=== PATIENT | male | born 1960 ===

== ENCOUNTER → 2023-05-06 17:36 | Outpatient (REF) | payer OTHER, SELFPAY | LOC: RAD 17:36 | PROVIDERS: ATTENDING PHYSICIAN Family Medicine | DX: M25.551 Pain in right hip (principal) | CPT/HCPCS: 72110; 73523 ==

== ENCOUNTER → 2023-06-19 10:14 | Outpatient (REF) | payer OTHER, SELFPAY | LOC: RCS 10:14 | PROVIDERS: ATTENDING PHYSICIAN Family Medicine | DX: Z01.810 Encounter for preprocedural cardiovascular examination (principal) | CPT/HCPCS: 93005 ==

== ENCOUNTER 2023-09-28 11:48 | Outpatient (RCR) | payer OTHER, SELFPAY | END 2023-09-29 23:59 | disposition home or self-care (01) | LOC: RPT 11:48 | PROVIDERS: ATTENDING PHYSICIAN Family Medicine | DX: R29.6 Repeated falls (principal); G20.C Parkinsonism, unspecified; Z73.6 Limitation of activities due to disability; Z96.641 Presence of right artificial hip joint | CPT/HCPCS: 97110; 97112; 97116; 97162; 97530 ==

== ENCOUNTER 2023-10-28 09:37 | Outpatient (RCR) | payer OTHER, SELFPAY | END 2023-10-28 23:59 | disposition home or self-care (01) | LOC: RPT 09:37 | PROVIDERS: ATTENDING PHYSICIAN Otolaryngology; FAMILY PHYSICIAN Family Medicine | DX: Z47.1 Aftercare following joint replacement surgery (principal); Z96.641 Presence of right artificial hip joint; G20.B1 Parkinson's disease with dyskinesia, without mention of fluctuations; Z73.6 Limitation of activities due to disability; R49.0 Dysphonia; R47.1 Dysarthria and anarthria | CPT/HCPCS: 92507; 92524; 97110; 97112; 97116; 97530 ==

== ENCOUNTER 2023-11-23 15:26 | Outpatient (RCR) | payer OTHER, SELFPAY | END 2023-11-23 23:59 | disposition home or self-care (01) | LOC: RPT 15:26 | PROVIDERS: ATTENDING PHYSICIAN Otolaryngology; FAMILY PHYSICIAN Family Medicine | DX: G20.C Parkinsonism, unspecified (principal); Z96.641 Presence of right artificial hip joint; Z73.6 Limitation of activities due to disability | CPT/HCPCS: 92507; 97110; 97112; 97530 ==

== ENCOUNTER 2024-02-12 12:47 | Inpatient (IN) | payer OTHER, SELFPAY ==
[2024-02-12] VITALS (8 sets, daily range): BP systolic 100–142; BP diastolic 66–87; BMI 22.4
--- NOTE | 2024-02-12 10:01 | ED.GENMED ---
History of Present Illness
General
Chief Complaint: Skin Problem
Source: patient and physician
Exam Limitations: none
Time Seen by Provider: 02/12/24 09:39
Nursing documentation reviewed up to this point in time: agreed with
History of Present Illness
History of Present Illness:
Patient is a 63-year-old male with Parkinson's who presents to the ER for evaluation. reports because of Parkinson's patient falls almost daily(he does not use his walker as he should). He had initial fall in the beginning of December
January 05 and had an abrasion to his left arm several days later he had increased swelling and redness to the area and was put on Keflex. He was also told that he had a fracture to' the bone spur in his elbow.' He did follow up with [facility] ortho
and no further intervention was done. symptoms seemed improve however then redness started again and he was seen at urgent care and placed on doxycycline February 04. reports 2 days ago they noticed that left arm was bruised and swollen and
also now with redness to the elbow area. Patient has not had any fevers he denies any pain. He is right-hand dominant. Since initial injury he has fallen several times. Pt fell out of bed last night and might have landed on it.
Review of Systems
Review of Systems
Allergies reviewed?: Yes
All Other Systems: ROS reviewed and negative except as documented in HPI and ROS
Constitutional: Reports no symptoms
ABD/GI: Reports no symptoms
: Reports no symptoms
Musculoskeletal: Reports other (left arm swelling/bruising /redness )
Skin: Reports no symptoms
Neurological: Reports no symptoms
Psychiatric: Reports no symptoms
Phy Exam
General Physical Exam
General Presentation: no apparent distress
General age: appears stated age
General Skin: warm and dry
General Habitus: normal
General Mental: alert
General Hydration: appears well hydrated
Neurological Exam
Neurological Exam: alert and oriented x3
Musculoskeletal Exam
Musculoskeletal Exam: other (left UE with strong pulses + swelling to forearm/elbow region;+ erythema to posterior elbow with scattered ecchymosis to posterior elbow , normal distal sensation + erythema /swelling to dorsal forearm with warmth )
Skin Exam
Skin Exam: normal color and warm/dry
Psychiatric Exam
Psychiatric Exam: normal mood/affect
Course
Orders/Labs/Results
Orders:
Orders
02/12/24 09:57
Elbow, 3 view, Left [CR Elbow - Left Min 3 Views ] Urgent
Comment:
Reason For Exam: trauma
02/12/24 09:58
Venous Doppler Upr Ext Left [US Periph Venous UPPER Ext LT] Urgent
Comment:
Reason For Exam: left arm swelling
02/12/24 10:00
IV Insert/Care/Rem.- Treatment PRN
02/12/24 10:17
Complete Blood Count/With Diff Urgent
02/12/24 11:23
Comprehensive Metabolic Panel Urgent
Abnormal Lab Results
02/12/24 02/12/24
10:17 11:23
RBC 4.00 L 10^6/uL
(4.70-6.10)
Hgb 12.0 L g/dL
(13.0-18.0)
Hct 35.5 L %
(39.0-52.0)
Absolute Lymphs (auto) 0.7 L 10^3/uL
(1.2-3.4)
Neutrophils % 78.3 H %
(42.2-75.2)
Lymphocytes % 10.8 L %
(20.5-51.1)
Chloride 115 H mmol/L
(98-107)
Carbon Dioxide 21 L mmol/L
(22-30)
Creatinine 0.5 L mg/dL
(0.7-1.3)
Calcium 7.1 L mg/dl
(8.4-10.2)
Total Protein 4.7 L g/dl
(6.3-8.2)
Albumin 2.8 L g/dl
(3.5-5.0)
02/12/24 10:17
02/12/24 11:23
Vital Signs
Initial and Last Documented VS:
Initial Vital Signs
Temp Pulse Resp BP Pulse Ox
97.5 F 75 16 107/66 98
02/12/24 08:47 02/12/24 08:47 02/12/24 08:47 02/12/24 08:47 02/12/24 08:47
Last Documented Vital Signs
Temp Pulse Resp BP Pulse Ox
98.5 F 82 20 100/76 100
02/12/24 10:26 02/12/24 10:26 02/12/24 10:26 02/12/24 10:26 02/12/24 10:26
Concrete Tile Machine Operator consulted with Physician
Concrete Tile Machine Operator consulted with physician?: Yes
Name of Physician Consulted: Noh
MDM/Problems Addressed
MDM/Problems Addressed:
Symptoms are consistent with cellulitis. Patient has been on doxycycline for 7 days. Original injury was early December patient did have contusion and abrasion at that time and was told he chipped bone spurs. X-ray today does show fragments
posterior to the olecranon favored to be avulsed/displaced olecranon fracture. Patient does have Parkinson's and is falling on his elbow several times since the initial injury. On exam he has obvious swelling to the arm with erythema to the
forearm erythema posterior elbow and scattered bruising. Patient has good range of motion does not appear to be septic joint exam consistent with cellulitis. Will admit for IV antibiotics since patient failed Doxy for 7 days.
Chronic conditions affecting care:
parkinsons- frequent falls
*Radiology
Radiology exam reviewed: radiology read reviewed
*Pulse Oximetry
Patient hypoxic: no
*Critical Care Note
Total Time (30-74mins, 75-104mins- exclusive of procedures): Not Applicable
ED Attending Note
-
Portions of this chart may have been created with voice recognition software.� Occasional wrong word or��sound alike� substitutions may have occurred due to the inherent limitations of voice recognition software.
Discharge Plan
Departure
Patient Disposition: Admit
Date of Disposition: 02/12/24
Time of Disposition: 12:09
Admit to doctor: hospitalist
Presentation/result/management discussed w/ accepting MD/DO: Hospitalist
Patient with high blood pressure during this ER visit?: No
Condition: Fair
Covid-19: Not Applicable
Discharge Problem:
Cellulitis of forearm, left
Prescriptions:
No Action
amantadine HCl 100 mg Tablet
100 mg PO DAILY
carbidopa-levodopa [Sinemet CR] 25-100 mg Tablet Extended Release
1 tab PO QID
entacapone 200 mg Tablet
200 mg PO QID
famotidine 20 mg Tablet
20 mg PO HS
mirtazapine 30 mg Tablet
30 mg PO HS
carbidopa-levodopa [Sinemet] 25-100 mg Tablet
1 tab PO QID
Crexont 52.5-210 mg Capsule,Ir -Extend Rel,Biphase
2 cap PO HS
Referrals:
NONE,* [Family Provider] -
Interventions
Interventions:
*Risk Screen - Suicide Last Done: 02/12/24 08:47
*General Assessment Last Done: 02/12/24 08:47
*Neglect/Abuse Screening Last Done: 02/12/24 08:47
ED- Fall Risk Assessment Last Done: 02/12/24 10:26
*ED COVID-19 Vaccine History Last Done: 02/12/24 10:26
ED-Skin Assessment Last Done: 02/12/24 10:26
Discharge Date and Time
Print Language: LAO
[2024-02-12 10:38] LABS: % Basophils 0.3 % (0-2); % Eosinophils 1.2 % (0-6); % Immature Granulocytes 0.3 % (0-0.5); % Lymphocytes 10.8 % (20.5-51.1); % Monocytes 9.1 % (1.7-9.3); % Neutrophils 78.3 % (42.2-75.2); Absolute Eosinophils 0.1 10^3/uL (0-0.7); Absolute Lymphocytes 0.7 10^3/uL (1.2-3.4); Absolute Monocytes 0.6 10^3/uL (0.1-0.6); Absolute Neutrophils 5.1 10^3/uL (1.4-6.5); Hematocrit 35.5 % (39.0-52.0); Mean Corp Hgb Conc. 33.8 g/dL (33.0-37.0); Mean Corpuscular Volume 88.8 fL (80.0-94.0); Mean Platelet Volume 10.3 fL (7.4-10.4); Nucleated Red Blood Cells % 0 % (-); Platelet Count 176 10^3/uL (130-400); Red Cell Dist. Width 12.3 % (11.5-14.5); White Blood Cell Count 6.5 10^3/uL (4.8-10.8)
[2024-02-12 11:51] LABS: ALT (SGPT) < 10 U/L (0-50); AST (SGOT) 18 U/L (17-59); Albumin 2.8 g/dl (3.5-5.0); Alkaline Phosphatase 62 U/L (38-126); Blood Urea Nitrogen 17 mg/dl (9-20); Calcium 7.1 mg/dl (8.4-10.2); Carbon Dioxide 21 mmol/L (22-30); Chloride 115 mmol/L (98-107); Estimated Creatinine Clearance > 125 ml/min; Glucose 75 mg/dl (70-99); Potassium 3.5 mmol/L (3.5-5.1); Sodium 141 mmol/L (135-145); Total Bilirubin 0.6 mg/dl (0.2-1.3); Total Protein 4.7 g/dl (6.3-8.2); eGFR > 60.00
--- NOTE | 2024-02-12 12:10 | HPS.HSE ---
Family Physician
-
Family Physician: * NONE
Chief Complaint
-
left elbow swelling and pain.
History of Present Illness
63-year-old male with Parkinson's who presents with left arm swelling, redness since the fall couple weeks ago. since the fall he noticed a abrasion, worsening swelling and pain. he was evaluated at [facility], prescribed abx and sent home. he felt
better for few days. two days after he noticed worsening swelling, redness. He was evaluated at urgent care. He was prescribed doxycycline with no relief in his symptoms. Yesterday he noticed worsening swelling and bruising to worse his upper
arm. Patient stated its painful. Denied fever, chills, chest pain, short of breath. Denied headache, dizzy or syncope. Patient denied abdominal pain, nausea, vomiting or diarrhea. Patient denied dysuria,hematuria. patient fell of the bed last
night but denied denied hitting his arm or head on the floor.
patient received iv vanco in ER. admitting for further management.
Medical History
Past Medical History
Past Medical History: Reports Other
Additional Past Medical History:
Parkinson disease
BPH
gallbladder calculus
hypothyroidism
hld
Past Surgical History: Reports Other
Additional Past Surgical History:
septoplasty
right hop replacement
Social History
Tobacco: Non-smoker
Alcohol: Occasional
Drug: None
Personal:
Living: With Family
Family History
Family History: Not pertinent
Allergies / Home Medications
Allergies reflects when Allergies were last updated in [employer].
Home Medications with original date entered in [employer]
Allergy/Medication List:
Allergies
Allergy/AdvReac Type Severity Reaction Status Date / Time
No Known Allergies Allergy Unverified 02/12/24 08:47
Home Medications
amantadine HCl 100 mg tablet 100 mg PO DAILY 02/12/24
carbidopa 25 mg-levodopa 100 mg tablet (Sinemet) 1 tab PO QID 02/12/24
carbidopa 52.5 mg-levodopa ER 210 mg capsule,immed and extend release (Crexont) 2 cap PO HS 02/12/24
carbidopa ER 25 mg-levodopa 100 mg tablet,extended release 1 tab PO QID 02/12/24
entacapone 200 mg tablet 200 mg PO QID 02/12/24
famotidine 20 mg tablet 20 mg PO HS 02/12/24
mirtazapine 30 mg tablet 30 mg PO HS 02/12/24
Review of Systems
-
Constitutional: Reports No Symptoms
EENT: Reports No Symptoms
Respiratory: Reports No Symptoms
Cardiac: Reports No Symptoms
Abdomen/GI: Reports No Symptoms
: Reports No Symptoms
Musculoskeletal: Reports No Symptoms
Skin: Reports Other (left arm redness, echymotic ad swelling)
Neurological: Reports No Symptoms
Endocrine: Reports No Symptoms
Hematologic/Lymphatic: Reports No Symptoms
Psych: Reports No Symptoms
Physical Exam
Vital Signs
Vital Signs
Temp Pulse Resp BP Pulse Ox
98.5 F 82 20 100/76 100
02/12/24 10:26 02/12/24 10:26 02/12/24 10:26 02/12/24 10:26 02/12/24 10:26
Physical Exam
General: Well Developed, Well Nourished and No Apparent Distress
HEENT: NormoCephalic, Moist mucous membranes and Atraumatic
Respiratory: Clear
Cardiac: S1/S2 and Regular Rhythm; No Murmur or Rub
GI: Soft, Non Tender, Non Distended and Normal Bowel Sounds; No Organomegaly
Rectal: Deferred by Provider
Musculoskeletal: No Clubbing, No Cyanosis and No Edema
Skin: Rash and Other (left arm redness, swelling and echymotic)
Neuro: AO x 3 and Nonfocal/grossly intact
Psych: Calm
Laboratory Results
-
02/12/24 10:17
02/12/24 11:23
Laboratory Results
Total Bilirubin 0.6 mg/dl (0.2-1.3) 02/12/24 11:23
AST 18 U/L (17-59) 02/12/24 11:23
ALT < 10 U/L (0-50) 02/12/24 11:23
Alkaline Phosphatase 62 U/L (38-126) 02/12/24 11:23
Data Reviewed
-
Diagnostic Radiology: Report Reviewed by me
Lab Data: Labs Reviewed by me
Impression/Plan
-
#cellulitis of left forearm
#displaced olecranon fracture
-failed outpatient abx therapy
-Duplex negative for acute DVT
-left elbow x ray with the impression of Ossific fragments posterior to the olecranon, favored to represent avulsed/displaced olecranon fracture in the setting of reported trauma
-Continue Vanco
-Tylenol as needed for pain and fever
-Orthopedics consulted
#frequent falls likely from Parkinson disease
-PT/OT consulted
# Parkinson disease
-Amantadine, carbidopa levodopa, entacapone continued
# GERD
-PPI continued
# Insomnia
-mirtazapine continued
# DVT prophylaxis
-Lovenox
# CODE STATUS
-Full code
--- NOTE | 2024-02-12 12:45 | W.PN.UPDATE ---
Update Note
Progress Note Update
This is an addendum to the H&P written by Yazmin Singh on 02/12/2024.� Patient seen and examined independently with [employer] CONSULT[employer].
63-year-old male past medical history of Parkinson's disease with daily falls, developed an abrasion to his left arm with increased swelling and redness treated with Keflex.� Told he had a fracture of the bone spur in his elbow.� Salima recommend
no further intervention.� Symptoms initially improved then got worse.� Started on doxycycline on February 04 with worsening symptoms.
Avulsed/displaced olecranon fracture on elbow x-ray.� Venous ultrasound left upper extremity negative for DVT.
Presentation consistent with left elbow olecranon bursitis/cellulitis with avulsed/displaced olecranon fracture on elbow x-ray.� Patient initially wore a cast for 5 days and then was recommended sling which he has not been wearing.� Vancomycin.�
Orthopedics consulted.
[2024-02-12] MEDS: VANCOCIN 540 MG IV (13:09)
--- NOTE | 2024-02-12 13:30 | EDRN ---
the pts blood pressures remain hypotensive, this RN notified Dr. Jimenez due to the pts being med surg, this RN asked for the pt to be upgraded, per the provider the pt will remain med surg
--- NOTE | 2024-02-12 13:56 | CON.ORTHO ---
Consultation - Orthopedics
History
HPI: 63-year-old male history of Parkinson's Presented to the emergency department with complaints of left elbow swelling redness and pain. He had been seen outpatient basis about 1 month ago diagnosed with a fractured enthesophyte as well as
cellulitis. He is placed antibiotics temporarily immobilized. He reports that he is at multiple falls since then. He has been admitted to the hospital service for IV antibiotics and orthopedics is consulted. Today patient localizes discomfort to
the area to the left elbow. He is able to actively extend elbow although with some pain and weakness. He is concerned that redness and swelling have not resolved despite antibiotic treatment. He was recently seen in urgent care and had change
antibiotics without improvement. He does report frequent falls secondary to his Parkinson's.
Allergies / Home Medications
Past medical history: Parkinson's, BPH hypothyroidism hyperlipidemia
Past surgical history: Septoplasty, right total hip arthroplasty
Family history: Not pertinent
Social history: Non-smoker, lives with
Allergy/AdvReac Type Severity Reaction Status Date / Time
No Known Allergies Allergy Unverified 02/12/24 08:47
�Medication �Instructions �Recorded
amantadine HCl 100 mg tablet 100 mg PO DAILY 02/12/24
carbidopa 25 mg-levodopa 100 mg 1 tab PO QID 02/12/24
tablet (Sinemet)
carbidopa 52.5 mg-levodopa ER 210 2 cap PO HS 02/12/24
mg capsule,immed and extend
release (Crexont)
carbidopa ER 25 mg-levodopa 100 mg 1 tab PO QID 02/12/24
tablet,extended release
entacapone 200 mg tablet 200 mg PO QID 02/12/24
famotidine 20 mg tablet 20 mg PO HS 02/12/24
mirtazapine 30 mg tablet 30 mg PO HS 02/12/24
Vital Signs / Lab Results
Temp Pulse Resp BP Pulse Ox
98.5 F 71 20 142/87 98
02/12/24 10:26 02/12/24 13:30 02/12/24 13:30 02/12/24 13:30 02/12/24 13:30
02/12/24 10:17
02/12/24 11:23
10 point review systems reviewed and negative unless otherwise stated
General: Pleasant, supine in bed
Musculoskeletal left upper extremity
Skin intact, there is some edematous skin changes throughout forearm and distal upper arm
There are some ecchymotic staining noted as well as some very mild erythematous skin changes over tip of olecranon
There is a palpable gap noted tip of olecranon
Patient is able to weakly extend elbow against gravity with perhaps 5 degrees of terminal extension lacking
Very mild tense palpation over tip of olecranon
No gross motor or sensory deficits distally
Diagnostic studies
X-rays multiple views left elbow reviewed by myself. There is evidence of a mildly displaced enthesophyte/tip of olecranon fracture. This was reviewed and compared to outpatient radiographs obtained on 01/09 they do represent increased interval
displacement.
Assessment / Plan
63-year-old male left elbow pain and swelling with associated displaced tip of olecranon fracture. This may represent an avulsion type injury to the triceps. He is able to actively extend elbow against gravity but does have weakness with
resistance. He has a mild extensor lag. I am not sure that this represents an infectious etiology given the fact that he has had continued swelling despite multiple antibiotic treatments Particularly given his continued falls and interval
displacement of fracture. Will plan to obtain inflammatory markers. Would recommend sling for immobilization. I do think he it would be prudent for him to follow-up with his established outpatient fellowship trained shoulder and elbow surgeon who
is seen previously to discuss treatment further. This was explained to the patient and did discuss this with primary team as well. Please reach out any questions or concerns. No acute orthopedic intervention planned.
--- NOTE | 2024-02-12 14:03 | EDRN ---
this RN called the receiving unit and notified them that paper report was going to be tubed up
--- NOTE | 2024-02-12 14:20 | EDRN ---
the pt had a 5 beat run of vtach, this RN notified Dr. Jimenez, no new orders were received
--- NOTE | 2024-02-12 14:53 | PHA.VAN.IN ---
Assessment
- Assessment
Renal Function: Appears similar to baseline
Concomitant Antimicrobials: N/A
AUC Dosing Plan
- Dosing Variables
Dosing Weight (kg): 74.843
Dosing CrCl (ml/min): 125
Vd coefficient (L/kg): 0.7
- Empiric Dosing
Initial / Loading Dose: Vanco 2000mg Loading Dose given 02/12/24 at 1309
Maintenance Regimen: Vanco 1250mg Q12H Starting 02/13/24 at 0600
Estimated AUC (mcg*h/mL): 477
Estimated Peak (mcg*h/mL): 32.8
Estimated Trough (mcg/ml): 10.5
Estimated Half Life (H): 10.52
- Monitoring
No levels ordered at this time: Consider level in the next few days
Pharmacokinetics Vancomycin I
- -
Patient Age: 63
Patient Sex: Male
Vancomycin Day #: 1
Indication: Skin And Soft Tissue
Requesting Provider: Yazmin/Karlie
Pertinent Antimicrobial Allergies:
NKDA
Height / Weight:
Height 6 ft
Actual Weight 74.843 kg
- Vital Signs / Lab Results
Temp Pulse Resp BP Pulse Ox
98.5 F 71 20 142/87 97
02/12/24 10:26 02/12/24 13:30 02/12/24 13:30 02/12/24 13:30 02/12/24 14:00
Lab Results - Hematology
02/12/24
10:17
WBC 6.5
Lab Results - Chemistry
02/12/24 02/12/24
10:17 11:23
BUN Cancelled 17
Creatinine Cancelled 0.5 L
Estimated Creat Clear Cancelled > 125
Albumin Cancelled 2.8 L
--- NOTE | 2024-02-12 15:00 | PTCARENOTE ---
02/11- Patient transferred and oriented to unit without issue. AAOX3, MedSurg, No current complaints.
[2024-02-12 15:10] LABS: Erythrocyte Sed Rate 18 mm/hour (0-20)
[2024-02-12] MEDS: COMTAN 200 MG PO ×2 (15:37→18:27)
[2024-02-12] MEDS: SINEMET CR 25-100 (EXTENDED RELEASE) 1 TABLET PO (18:27)
[2024-02-12] MEDS: SINEMET 25-100 1 TABLET PO (18:30)
[2024-02-12] MEDS: NON-FORMULARY ITEM 2 CAP PO (23:25)
[2024-02-12] MEDS: PEPCID 20 MG PO (23:26)
[2024-02-12] MEDS: REMERON 30 MG PO (23:26)
[2024-02-13] MEDS: VANCOCIN 275 MG IV ×2 (05:15→18:46)
[2024-02-13] MEDS: TYLENOL 650 MG PO (05:22)
[2024-02-13 07:00] VITALS: BP 117/69
[2024-02-13] MEDS: NON-FORMULARY ITEM 2 CAP PO ×2 (07:11→22:04)
[2024-02-13] MEDS: COMTAN 200 MG PO ×4 (07:11→17:35)
--- NOTE | 2024-02-13 07:15 | W.PN.HOSP.TC ---
Today's Communication/Plan
-
Cont abx for now
PT/OT
ID eval
Discharge planning Acute Rehab
Assessment / Plan
Assessment / Plan
Physical Exam
General: No acute distress appears comfortable
HEENT: NormoCephalic, Moist mucous membranes and Atraumatic
Respiratory: Clear
Cardiac: S1/S2 and Regular Rhythm; No Murmur or Rub
GI: Soft, Non Tender, Non Distended and Normal Bowel Sounds; No Organomegaly
Musculoskeletal: No Clubbing, No Cyanosis and No Edema
Skin: left elbow redness swelling tenderness ecchymosis
Neuro: AO x 3, dysarthria, some dyskinesia chorea noted, cogwheel rigidity upper ext's
Psych: Calm
Left Elbow bruising Ecchymosis
63M Parkinson's p/w left arm/elbow swelling, redness since the fall couple weeks ago. Since the fall he noticed abrasion, worsening swelling, and pain. He was evaluated at [facility], prescribed abx and sent home. He felt better for few days. Two
days after he noticed worsening swelling, redness. He was evaluated at urgent care. He was prescribed doxycycline with no relief in his symptoms. Day prior hospitalization, he noticed worsening swelling, bruising, pain his upper arm.
#possible cellulitis of left forearm vs ecchymosis/contusion d/t repeat trauma
#displaced olecranon fracture
No systemic signs of infection (such as fever white count elevation)
-failed outpatient abx therapy (if infection true)
-Duplex negative for acute DVT
-left elbow x ray with the impression of Ossific fragments posterior to the olecranon, favored to represent avulsed/displaced olecranon fracture in the setting of reported trauma
-Continue Vanco for now, ID eval requested
-Tylenol as needed for pain and fever
-Orthopedics consult appreciated no acute surgical intervention indicated, patient recommended to cont follow up with his orthopedic shoulder and elbow specialist outpt
#frequent falls likely from Parkinson disease and left arm pain/contusion as above
-PT/OT consult appreciated Acute Rehab (patient and interested in [facility])
# Parkinson disease
-Amantadine, carbidopa levodopa, entacapone continued
# GERD
-PPI continued
# Insomnia
-mirtazapine continued
# DVT prophylaxis
-Lovenox
# CODE STATUS
-Full code
Discussed with patient and patient's Madyson
I spent a total of 40 minutes with the patient or on the floor. More than 50% of this time involved counseling and coordination of care.
Anticipated Discharge: 24 - 48 hours
Subjective/Interval History
-
Date of Service: February 13, 2024
No acute distress sitting up comfortably in chair. Had a fall earlier in the day, witnessed by nurse, patient landed on his left knee and elbow, no head trauma. Madyson present during evaluation. Denies fever chills nausea vomiting diarrhea
constipation. Overall patient reports feeling well.
Objective Data
-
Labs:
Laboratory Results
02/13/24
06:19
Sodium Pending
Potassium Pending
Chloride Pending
Carbon Dioxide Pending
BUN Pending
Creatinine Pending
Glucose Pending
Calcium Pending
Vital Signs:
Vital Signs
Temp Pulse Resp BP Pulse Ox
98.5 F 74 16 122/78 99
02/12/24 22:44 02/12/24 22:44 02/12/24 22:44 02/12/24 22:44 02/12/24 22:44
I&O
02/12/24 02/13/24 02/14/24
06:59 06:59 06:59
Intake Total 755 / 755
Balance 755 / 755
[2024-02-13 07:34] LABS: Blood Urea Nitrogen 16 mg/dl (9-20); Calcium 8.9 mg/dl (8.4-10.2); Carbon Dioxide 27 mmol/L (22-30); Chloride 108 mmol/L (98-107); Estimated Creatinine Clearance 113 ml/min; Glucose 96 mg/dl (70-99); Potassium 4.2 mmol/L (3.5-5.1); Sodium 140 mmol/L (135-145); eGFR > 60.00
[2024-02-13] MEDS: SYMMETREL 100 MG PO (08:10)
--- NOTE | 2024-02-13 08:18 | PHA.VAN.FU ---
Vancomycin Assessment / Plan
- Assessment
Renal Function: Stable
WBC's are: WNL
In the past 24 hrs, patient has been: Afebrile
- Dosing Plan
Continue: vancomycin 1250 mg q12h - first dose 02/12 600
- Monitoring Plan
No level(s) ordered at this time: consider levels after 4th maint. dose
- Follow Up
Pharmacy will continue to follow.
Vancomycin Follow UP
- -
Patient Age: 63
Patient Sex: Male
Vancomycin Day #: 2
Indication: Skin And Soft Tissue
Requesting Provider: Yazmin/Karlie
Pertinent Antimicrobial Allergies:
NKDA
Height / Weight:
Height 6 ft
Actual Weight 74.871 kg
- Vital Signs / Lab Results
Temp Pulse Resp BP Pulse Ox
98.2 F 70 16 117/69 99
02/13/24 07:00 02/13/24 07:00 02/13/24 07:00 02/13/24 07:00 02/13/24 07:00
Lab Results - Hematology
02/12/24
10:17
WBC 6.5
Lab Results - Chemistry
02/12/24 02/12/24 02/13/24
10:17 11:23 06:19
BUN Cancelled 17 16
Creatinine Cancelled 0.5 L 0.7
Estimated Creat Clear Cancelled > 125 113
Albumin Cancelled 2.8 L
[2024-02-13 11:00] VITALS: BP 118/73
[2024-02-13 11:09] VITALS: BP 107/66; PULSE 71; O2SAT 98
[2024-02-13 11:10] VITALS: BP 107/66; PULSE 71; O2SAT 98
[2024-02-13] MEDS: SINEMET CR 25-100 (EXTENDED RELEASE) 1 TABLET PO ×3 (11:42→17:35)
[2024-02-13] MEDS: SINEMET 25-100 1 TABLET PO ×3 (11:42→17:35)
[2024-02-13 15:00] VITALS: BP 122/68
--- NOTE | 2024-02-13 15:44 | CM ---
medical care manager reviewed patient's chart and met with patient and spouse at bedside, Patient was admitted from home, patient lives in a 2 story home with a first floor set up, patient is independent with ADL's and uses a weighted walker with
ambulation, t spouse states that patient has been falling recently. Patient was seen by physical therapy and recommendation is for acute rehab, options reviewed with patient and spouse and they have selected [facility], referral sent to [facility].
PCP: Dr. Moreno
Pharmacy: [facility] in [place]
Plan; [facility] referral sent [facility].
--- NOTE | 2024-02-13 15:51 | CON.ID ---
Consultation
-
Date/Time Consultation Requested: February 13, 2024 1051
Date/Time Consultation Performed: February 13, 2024 1550
Requesting Provider: Dr. Jayden Montilla
Performing Provider: Dr. Gloria Currie
Reason for Consultation: Olecranon bursitis
Chief Complaint / Past History
Chief Complaint
Elbow swelling and redness
History of Present Illness
63-year-old male with Parkinson's disease who has been having multiple falls sustaining left olecranon displaced fracture about 4 weeks ago. He saw orthopedics who placed him on a brief course of antibiotic for the swelling and erythema as well as
a mobility device. He reports the swelling and redness did not improve. He has had several falls since then. The elbow was getting worse with pain, redness and swelling. He went to urgent care on February 04 who prescribed doxycycline. Again no
clinical improvement. He came to the hospital on February 11. He denies any fevers or chills.
Past History
Additional Past Medical History:
Parkinson's
Hypothyroidism
Dyslipidemia
BPH
Right total hip replacement
Septoplasty
Allergy History:
No Known Allergies Allergy (Unverified 02/12/24 08:47)
Medications Reviewed: Yes
Current Antibiotics:
Vancomycin
Social History
Tobacco: Non-Smoker
Alcohol: Occasional
Drug: None
Personal:
Living: With Family
Family History
Family History: Not Pertinent
Review of Systems
Review of Systems
General: Negative Fever, Chills or Change in Appetite
HEENT: Negative Sinus Problems or Headache
Cardiovascular: Negative Chest Pain or Edema
Respiratory: Negative Dyspnea or Cough
Gasteroenterology: Negative Nausea, Vomiting or Diarrhea
Genital / Urological: Negative Dysuria or Flank Pain
Neurological: Negative Dizziness
All systems: All other systems were reviewed and were negative
Vital Signs
Temp Pulse Resp BP Pulse Ox
98.0 F 74 16 118/73 99
02/13/24 11:00 02/13/24 11:00 02/13/24 11:00 02/13/24 11:00 02/13/24 11:00
Physical Exam
Physical Exam
Constitutional: No Acute Distress
Eyes: No Conjunctival Hemorrhage and Sclera Anicteric
Cardiovascular: Regular Rate and S1/S2
Pulmonary: Clear
Gastrointestinal: Soft, Non Tender, Non Distended and Normal Bowel Sounds
Genito-Urinary: Negative CVA Tenderness
Musculoskeletal: Other (left olecranon - small effusion bursa, + induration, pink erythema, warmth, ecchymosis. ROM intact)
Lab / Diagnostic Study Results
02/12/24 10:17
02/13/24 06:19
Abs Immat Gran (auto) 0.0 10^3/uL (0-0.05) 02/12/24 10:17
Absolute Neuts (auto) 5.1 10^3/uL (1.4-6.5) 02/12/24 10:17
Absolute Lymphs (auto) 0.7 10^3/uL (1.2-3.4) L 02/12/24 10:17
Absolute Monos (auto) 0.6 10^3/uL (0.1-0.6) 02/12/24 10:17
Absolute Basos (auto) 0.0 10^3/uL (0-0.2) 02/12/24 10:17
Immature Gran % 0.3 % (0-0.5) 02/12/24 10:17
Neutrophils % 78.3 % (42.2-75.2) H 02/12/24 10:17
Lymphocytes % 10.8 % (20.5-51.1) L 02/12/24 10:17
Monocytes % 9.1 % (1.7-9.3) 02/12/24 10:17
Eosinophils % 1.2 % (0-6) 02/12/24 10:17
Basophils % 0.3 % (0-2) 02/12/24 10:17
ESR Cancelled 02/12/24 13:41
C-Reactive Protein 38.60 mg/L (0.0-10.00) H 02/12/24 11:23
Microbiology Results
Micro:
02/13/24 11:38 Nasal Screen MRSA (PCR) - Final
Nose MRSA not detected - performed by PCR methodology.
02/12/24 Left elbow xray: Ossific fragments posterior to the olecranon, favored to represent avulsed/displaced olecranon fracture in the setting of reported trauma.
Assessment / Plan
# Parkinson's with ambulatory dysfunction.
# Left olecranon bursitis due to repeated trauma (falls) and avulsed/displaced olecranon fracture
- Doubt bursitis will respond to antibiotic if non-infectious
- Trial of NSAID ibuprofen 800mg po bid with food x 3 days.
- Apply ice.
-Twin-Wrap compression
- Elevate LUE.
# Conditions [employer]
Parkinson's
Hypothyroidism
Dyslipidemia
BPH
Right total hip replacement
Septoplasty
[2024-02-13 16:56] LABS: Uric Acid 4.5 mg/dl (3.5-8.5)
--- NOTE | 2024-02-13 19:45 | PTCARENOTE ---
Pt and spouse requested to have all 4 side rails up to prevent pt from rolling OOB.
[2024-02-13] MEDS: MOTRIN 800 MG PO (22:03)
[2024-02-13] MEDS: PEPCID 20 MG PO (22:03)
[2024-02-13] MEDS: REMERON 30 MG PO (22:03)
[2024-02-13 22:59] VITALS: BP 123/79
[2024-02-14] MEDS: VANCOCIN 275 MG IV (06:05)
[2024-02-14] MEDS: NON-FORMULARY ITEM 2 CAP PO ×2 (06:06→21:49)
[2024-02-14] MEDS: COMTAN 200 MG PO ×4 (06:07→18:26)
[2024-02-14 07:15] VITALS: BP 99/70
[2024-02-14 07:44] LABS: Hematocrit 36.6 % (39.0-52.0); Hemoglobin 12.2 g/dL (13.0-18.0); Mean Corp Hgb Conc. 33.3 g/dL (33.0-37.0); Mean Corpuscular Hgb 29.5 pg (27.0-31.0); Mean Corpuscular Volume 88.4 fL (80.0-94.0); Mean Platelet Volume 10.2 fL (7.4-10.4); Platelet Count 176 10^3/uL (130-400); Red Blood Cell Count 4.14 10^6/uL (4.70-6.10); Red Cell Dist. Width 12.3 % (11.5-14.5); White Blood Cell Count 6.8 10^3/uL (4.8-10.8)
[2024-02-14 08:39] LABS: Blood Urea Nitrogen 15 mg/dl (9-20); Calcium 8.5 mg/dl (8.4-10.2); Carbon Dioxide 26 mmol/L (22-30); Chloride 107 mmol/L (98-107); Estimated Creatinine Clearance 113 ml/min; Glucose 90 mg/dl (70-99); Magnesium 2.2 mg/dl (1.6-2.3); Phosphorus 3.2 mg/dl (2.5-4.5); Sodium 140 mmol/L (135-145); eGFR > 60.00
[2024-02-14] MEDS: SYMMETREL 100 MG PO (09:19)
[2024-02-14] MEDS: MOTRIN 800 MG PO ×2 (09:19→21:49)
[2024-02-14 11:00] VITALS: BP 111/73
[2024-02-14] MEDS: SINEMET 25-100 1 TABLET PO ×3 (11:06→18:26)
[2024-02-14] MEDS: SINEMET CR 25-100 (EXTENDED RELEASE) 1 TABLET PO ×3 (11:06→18:26)
--- NOTE | 2024-02-14 12:19 | PTCARENOTE ---
1200 Pt restless while sitting in chair, noted pt continue to slide to edge of chair not realizing setting off chair alarm. Attempt to explain to pt and reorient pt at times. Also noted pt standing on own and not using nurse call quinones to ask hor
help until entering pt's room. Place medsitter,continue to monitor pt closely.
--- NOTE | 2024-02-14 12:42 | W.PN.HOSP.TC ---
Today's Communication/Plan
-
ID recs
abx
PMR eval
placement to acute rehabn
Assessment / Plan
Assessment / Plan
Physical Exam
General: No acute distress appears comfortable
HEENT: NormoCephalic, Moist mucous membranes and Atraumatic
Respiratory: Clear
Cardiac: S1/S2 and Regular Rhythm; No Murmur or Rub
GI: Soft, Non Tender, Non Distended and Normal Bowel Sounds; No Organomegaly
Musculoskeletal: No Clubbing, No Cyanosis and No Edema
Skin: left elbow redness swelling tenderness -able to palpate it and without any pain. No purulent drainage.
Neuro: AO x 3, dysarthria, some dyskinesia chorea noted, cogwheel rigidity upper ext's
Psych: Calm
Left Elbow bruising Ecchymosis
63M Parkinson's p/w left arm/elbow swelling, redness since the fall couple weeks ago. Since the fall he noticed abrasion, worsening swelling, and pain. He was evaluated at [facility], prescribed abx and sent home. He felt better for few days. Two
days after he noticed worsening swelling, redness. He was evaluated at urgent care. He was prescribed doxycycline with no relief in his symptoms. Day prior hospitalization, he noticed worsening swelling, bruising, pain his upper arm.
#Left olecranon Bursitis vs ecchymosis/contusion d/t repeat trauma
#displaced olecranon fracture
No systemic signs of infection (such as fever white count elevation)
-failed outpatient abx therapy (if infection true)
-Duplex negative for acute DVT
-left elbow x ray with the impression of Ossific fragments posterior to the olecranon, favored to represent avulsed/displaced olecranon fracture in the setting of reported trauma
-Abx per ID. Remains IV vancomycin for now.
-Tylenol as needed for pain and fever. Ibuprofen short course. Per pt improving
-Orthopedics consult appreciated no acute surgical intervention indicated, patient recommended to cont follow up with his orthopedic shoulder and elbow specialist outpt
-Cont with ice, bhupendra wrap.
#frequent falls likely from Parkinson disease and left arm pain/contusion as above
-PT/OT consult appreciated Acute Rehab (patient and interested in [place] [facility])
# Parkinson disease
-Amantadine, carbidopa levodopa, entacapone continued
# GERD
-PPI continued
# Insomnia
-mirtazapine continued
# DVT prophylaxis
-Lovenox
# CODE STATUS
-Full code
PT/OT-PMR. Physiatry consulted.
Anticipated Discharge: Within 24 hours
Subjective/Interval History
-
Date of Service: February 14, 2024
states improvement in left elbow pain and erythema
able to flex/extend elbow with good improvement per patient
Objective Data
-
Labs:
Laboratory Results
02/14/24
07:27
WBC 6.8
Hgb 12.2 L
Hct 36.6 L
Plt Count 176
Sodium 140
Potassium 4.0
Chloride 107
Carbon Dioxide 26
BUN 15
Creatinine 0.7
Glucose 90
Calcium 8.5
Vital Signs:
Vital Signs
Temp Pulse Resp BP Pulse Ox
97.5 F 70 16 99/70 100
02/14/24 07:15 02/14/24 07:15 02/14/24 07:15 02/14/24 07:15 02/14/24 07:15
I&O
02/13/24 02/14/24 02/15/24
06:59 06:59 06:59
Intake Total 755 / 755 480 / 480
Output Total 300 / 300
Balance 755 / 755 180 / 180
--- NOTE | 2024-02-14 13:14 | W.PN.ID1 ---
Date of Service
Date of Service: February 14, 2024
Today's Communication
- Bursitis responding to NSAID, ICE, Elevation, and compression.
- DC Vancomycin/abx.
Assessment / Plan
# Parkinson's with ambulatory dysfunction.
# Left olecranon bursitis due to repeated trauma (falls) and avulsed/displaced olecranon fracture
- Bursitis unresponsive to antibiotic due to non-septic bursa
- Bursitis responding to NSAID, ICE, Elevation, and compression.
- DC Vancomycin/abx.
# Conditions [employer]
Parkinson's
Hypothyroidism
Dyslipidemia
BPH
Right total hip replacement
Septoplasty
Chief Complaint
-: Other (bursitis)
Subjective / Review of Systems
elbow better
Vital Signs / Physical Exam
Vital Signs
Vital Signs
Temp Pulse Resp BP Pulse Ox
97.5 F 70 16 99/70 100
02/14/24 07:15 02/14/24 07:15 02/14/24 07:15 02/14/24 07:15 02/14/24 07:15
Physical Exam
Constitutional: No Acute Distress and Comfortable
Musculoskeletal: Other (Left UE: medial olecranon ecchymotic, edema slightly decreased, bursa less erytehmatous )
Objective Data
Lab Data
Lab Results
02/14/24 07:27
02/14/24 07:27
ESR Cancelled 02/12/24 13:41
Estimated Creat Clear 113 ml/min 02/14/24 07:27
Total Bilirubin 0.6 mg/dl (0.2-1.3) 02/12/24 11:23
AST 18 U/L (17-59) 02/12/24 11:23
ALT < 10 U/L (0-50) 02/12/24 11:23
Alkaline Phosphatase 62 U/L (38-126) 02/12/24 11:23
C-Reactive Protein 38.60 mg/L (0.0-10.00) H 02/12/24 11:23
Most recent labs reviewed.
Micro Results:
02/13/24 11:38 Nasal Screen MRSA (PCR) - Final
Nose MRSA not detected - performed by PCR methodology.
02/12/24 Left elbow xray: Ossific fragments posterior to the olecranon, favored to represent avulsed/displaced olecranon fracture in the setting of reported trauma.
Care Review
Plan reviewed with: Physician (Dr. Sydney Jones)
--- NOTE | 2024-02-14 14:09 | CM ---
Chart reviewed. Pt being recommended for acute rehab. Per chart, pt and spouse prefer [facility].
TT hospitalist for physiatry consult
Spoke w/ Redd/Geraldo who will review pt's referral. [facility] informed CM that an auth would not have to be obtained for pt
Physiatry eval pending
ID following
[facility]-
Report: [phone]

Plan: [facility] when medically stable; pending physiatry eval
[2024-02-14 15:29] VITALS: BP 128/85
[2024-02-14] MEDS: PEPCID 20 MG PO (21:49)
[2024-02-14] MEDS: REMERON 30 MG PO (21:50)
[2024-02-14 23:26] VITALS: BP 128/76
[2024-02-15] MEDS: NON-FORMULARY ITEM 2 CAP PO (06:05)
[2024-02-15] MEDS: COMTAN 200 MG PO ×2 (06:08→10:31)
[2024-02-15] MEDS: SYMMETREL 100 MG PO (07:46)
[2024-02-15] MEDS: MOTRIN 800 MG PO (07:46)
[2024-02-15 07:54] VITALS: BP 109/74
[2024-02-15 08:58] LABS: Blood Urea Nitrogen 16 mg/dl (9-20); Calcium 8.6 mg/dl (8.4-10.2); Carbon Dioxide 25 mmol/L (22-30); Chloride 108 mmol/L (98-107); Estimated Creatinine Clearance 99 ml/min; Glucose 82 mg/dl (70-99); Potassium 4.1 mmol/L (3.5-5.1); Sodium 140 mmol/L (135-145); eGFR > 60.00
[2024-02-15] MEDS: SINEMET 25-100 1 TABLET PO (10:31)
[2024-02-15] MEDS: SINEMET CR 25-100 (EXTENDED RELEASE) 1 TABLET PO (10:31)
--- NOTE | 2024-02-15 12:49 | W.PN.HOSP.TC ---
Today's Communication/Plan
-
dc home
ibuprofen
Assessment / Plan
Assessment / Plan
Physical Exam
General: No acute distress appears comfortable
HEENT: NormoCephalic, Moist mucous membranes and Atraumatic
Respiratory: Clear
Cardiac: S1/S2 and Regular Rhythm; No Murmur or Rub
GI: Soft, Non Tender, Non Distended and Normal Bowel Sounds; No Organomegaly
Musculoskeletal: No Clubbing, No Cyanosis and No Edema
Skin: left elbow redness swelling tenderness -able to palpate it and without any pain. No purulent drainage. Significant improvement and decrease in erythema.
Neuro: AO x 3, dysarthria, some dyskinesia chorea noted, cogwheel rigidity upper ext's
Psych: Calm
Left Elbow bruising Ecchymosis
63M Parkinson's p/w left arm/elbow swelling, redness since the fall couple weeks ago. Since the fall he noticed abrasion, worsening swelling, and pain. He was evaluated at [facility], prescribed abx and sent home. He felt better for few days. Two
days after he noticed worsening swelling, redness. He was evaluated at urgent care. He was prescribed doxycycline with no relief in his symptoms. Day prior hospitalization, he noticed worsening swelling, bruising, pain his upper arm.
#Left olecranon Bursitis vs ecchymosis/contusion d/t repeat trauma
#displaced olecranon fracture
No systemic signs of infection (such as fever white count elevation)
-failed outpatient abx therapy (if infection true)
-Duplex negative for acute DVT
-left elbow x ray with the impression of Ossific fragments posterior to the olecranon, favored to represent avulsed/displaced olecranon fracture in the setting of reported trauma
-abx further stopped per ID
-Tylenol as needed for pain and fever. Ibuprofen short course. Per pt improving
-Orthopedics consult appreciated no acute surgical intervention indicated, patient recommended to cont follow up with his orthopedic shoulder and elbow specialist outpt
-Cont with ice, bhupendra wrap.
#frequent falls likely from Parkinson disease and left arm pain/contusion as above
-PT/OT consult appreciated Acute Rehab (patient and interested in [facility])
# Parkinson disease
-Amantadine, carbidopa levodopa, entacapone continued
# GERD
-PPI continued
# Insomnia
-mirtazapine continued
# DVT prophylaxis
-Lovenox
# CODE STATUS
-Full code
Patient and spouse changed mind and wants to go home with outpatient therapy.
Discussed with spouse over the phone in detail. Spouse states patient biggest problem is cognition and not ambulatory dysfunction. States patient will do better at home with outpatient therapy. She wants patient to be discharged home. Discussed
all hospitalization progress so far.
More than 30 minutes spent in discharge including
Final examination of the patient
Summarizing hospital stay
Instructions for continuing care to all relevant caregivers
Preparation of discharge records, prescriptions, and referral forms
Total time spent (in minutes): 53
Anticipated Discharge: Today
Subjective/Interval History
-
Date of Service: February 15, 2024
states improvement in left elbow
able to flex/extend and move with significant improvement
Objective Data
-
Labs:
Laboratory Results
02/15/24
06:36
Sodium 140
Potassium 4.1
Chloride 108 H
Carbon Dioxide 25
BUN 16
Creatinine 0.8
Glucose 82
Calcium 8.6
Vital Signs:
Vital Signs
Temp Pulse Resp BP Pulse Ox
97.9 F 68 18 109/74 97
02/15/24 07:54 02/15/24 07:54 02/15/24 07:54 02/15/24 07:54 02/15/24 07:54
I&O
02/14/24 02/15/24 02/16/24
06:59 06:59 06:59
Intake Total 480 / 480 1100 / 1100
Output Total 300 / 300 600 / 600
Balance 180 / 180 500 / 500
--- NOTE | 2024-02-15 13:07 | W.DCSUMMARY ---
Discharge Summary
Discharge Data
Date of Admission: 02/12/24
Date of Discharge: 02/15/24
-
Pending Results: No
Hospital Course
63-year-old male past medical history of Parkinson disease, BPH, hypothyroidism, lipidemia is presenting with complaint of left arm swelling, erythema after fall couple of weeks ago. Also noted abrasion and worsening of swelling and pain. Patient
was evaluated by outpatient orthopedic who recommended antibiotics and was discharged home. Patient with worsening of erythema decided come in the hospital. It was started on IV vancomycin. Patient was eval by orthopedic and infectious disease.
Infectious disease recommended by started start will respond to antibiotic if noninfectious. Started patient on NSAIDs. IV vancomycin was discontinued. Patient with significant improvement in erythema and swelling. Patient was able to flex and
extend left elbow without any difficulty. Patient was eval by physical and Occupational Therapy. Initial plan was for acute rehab. However patient and spouse refused and said patient wants to go home with outpatient therapy. Recommend outpatient
follow-up with primary doctor and orthopedic.
Discharge Plan
-
Patient Disposition: Home with Home Care
Discharge Diagnosis/Procedures: Left olecranon Bursitis vs ecchymosis/contusion due to repeat trauma
Condition: Fair
Other Services: PT
Referrals:
NONE,* [Family Provider] - in less than 1 week
Prescriptions:
New
ibuprofen 600 mg tablet
600 mg PO BID Qty: 6 0RF
Rx Instructions:
Take with food/meals.
pantoprazole 40 mg Tablet,Delayed Release (Dr/Ec)
40 mg PO DAILY 7 Days Qty: 7 0RF
Continued
amantadine HCl 100 mg Tablet
100 mg PO DAILY
carbidopa-levodopa 25-100 mg Tablet Extended Release
1 tab PO TID@,
entacapone 200 mg Tablet
200 mg PO QID@,,,
famotidine 20 mg Tablet
20 mg PO HS
mirtazapine 30 mg Tablet
30 mg PO HS
carbidopa-levodopa [Sinemet] 25-100 mg Tablet
1 tab PO TID@,,
Crexont 52.5-210 mg Capsule,Ir -Extend Rel,Biphase
2 cap PO BID@
Discharge Orders:
Discharge Patient (As Directed); Ordered 02/15/24
Ordered By: Anmol Jones
Discharge Date and Time
Discharge Date/Time: 02/15/24 14:16
Print Language: TUNISIAN
[2024-02-15 13:51] VITALS: BP 96/60
--- NOTE | 2024-02-15 14:13 | CM ---
Chart reviewed and patient is for discharge to home today with outpatient PT/OT, patient has script.
Plan; Home with family.
== END 2024-02-15 14:16 | disposition home health service (06) | DRG 563 ==
LOC: 4 WEST ACU 12:47
PROVIDERS: Internal Medicine; Nurse Practitioner; Registered Nurse; ADMITTING PHYSICIAN Hospitalist; ATTENDING PHYSICIAN Hospitalist; CONSULT PHYSICIAN Internal Medicine Infectious Disease; CONSULT PHYSICIAN Orthopaedic Surgery; EMERGENCY PHYSICIAN Emergency Medicine
DX: S52.022A Displaced fracture of olecranon process without intraarticular extension of left ulna, initial encounter for closed fracture (principal); L03.114 Cellulitis of left upper limb; W18.30XA Fall on same level, unspecified, initial encounter; G20.A1 Parkinson's disease without dyskinesia, without mention of fluctuations; E03.9 Hypothyroidism, unspecified; N40.0 Benign prostatic hyperplasia without lower urinary tract symptoms; E78.5 Hyperlipidemia, unspecified; R29.6 Repeated falls; K21.9 Gastro-esophageal reflux disease without esophagitis; G47.00 Insomnia, unspecified; M70.20 Olecranon bursitis, unspecified elbow
CPT/HCPCS: 73080; 80048; 80053; 83735; 84100; 84550; 85025; 85027; 85652; 86140; 87641; 93971; 96365; 97163; 97166; 97530; 99285